=== PATIENT | male | born 2000 | race African-American/Black ===

== ENCOUNTER 2021-03-09 09:08 | Emergency (ER) | payer OTHER ==
[~2021-03-09] VITALS: Ht 182.9 cm; Wt 88.5 kg
--- OUTSIDE RECORDS SUMMARY | 2021-03-09 12:01 | CCD ---
Author Author [facility] Organization [facility] Address Unknown Phone Unavailable Support Name Relationship Address Phone [facility] Next Of Kin [address] [place] [address] Unavailable [employer] [place] [id number] [place] [address] Re-disclosure Warning The records that you are about to access may contain information from federally-assisted alcohol or drug abuse programs. If such information is present, then the following federally mandated warning applies: This information has been disclosed to you from records protected by federal confidentiality rules (42 CFR part 2). The federal rules prohibit you from making any further disclosure of this information unless further disclosure is expressly permitted by the written consent of the person to whom it pertains or as otherwise permitted by 42 CFR part 2. A general authorization for the release of medical or other information is NOT sufficient for this purpose. The Federal rules restrict any use of the information to criminally investigate or prosecute any alcohol or drug abuse patient.The records that you are about to access may contain highly sensitive health information, the redisclosure of which is protected by Article 27-F of the [facility] Public Health law. If you continue you may have access to information: Regarding HIV / AIDS; Provided by facilities licensed or operated by the [facility] Office of Mental Health; or Provided by the [facility] Office for People With Developmental Disabilities. If such information is present, then the following [facility] mandated warning applies: This information has been disclosed to you from confidential records which are protected by state law. State law prohibits you from making any further disclosure of this information without the specific written consent of the person to whom it pertains, or as otherwise permitted by law. Any unauthorized further disclosure in violation of state law may result in a fine or retirement sentence or both. A general authorization for the release of medical or other information is NOT sufficient authorization for further disc losure. Immunizations Vaccine Date Status Description Data Source(s) COVID-19 VACCINE Pfizer 09/29/2020 12:00:00 AM EDT completed [facility] Vaccine Series Complete: NOThis Data was Submitted to [facility] [employer]. Medications No Information Insurance Providers Payer name Policy type / Coverage type Policy ID Covered republican ID Covered republican's relationship to hunter Policy Hunter Plan Information [facility] [id number] [facility] [id number] Problems, Conditions, and Diagnoses No Information Surgeries/Procedures No Information Results ID Date Data Source [id number] 07/11/2020 08:30:00 AM EST [facility] Name Value Range Interpretation Code Description Data Alejandra rce(s) Supporting Document(s) SARS coronavirus 2 RNA Not Detected [facility] [place] This lab was ordered by [facility] [employer] [facility] and reported by [facility]. ID Date Data Source [id number] 06/01/2020 12:13:00 PM EST [facility] Name Value Range Interpretation Code Description Data Alejandra rce(s) Supporting Document(s) SARS coronavirus 2 RNA Not Detected [facility] [place] This lab was ordered by [facility] and reported by [facility]. Procedure Social History No Information
--- NOTE | 2021-03-09 12:07 | REP ---
INDICATION: right inguinal pain/swelling. COMPARISON: None. TECHNIQUE: Real-time sonographic evaluation of bilateral inguinal regions performed at rest and with Valsalva maneuver. FINDINGS: There is mild bilateral inguinal adenopathy. On the right there are lymph nodes measuring 2.2 x 0.5 x 1.1 cm, 1.7 x 0.6 x 1.1 cm and 1.4 x 1.0 x 1.3 cm. On the left there are lymph nodes measuring 1.3 x 0.8 x 1.1 cm and 1.3 x 0.6 x 1.4 cm. There is no evidence of inguinal hernia bilaterally. IMPRESSION: Mild bilateral inguinal adenopathy. <Electronically signed by Jyadon Luque > 03/09/21 [id number]
--- NOTE | 2021-03-09 12:12 | REP ---
INDICATION: right inguinal pain/swelling. COMPARISON: None. TECHNIQUE: Real-time sonographic evaluation of scrotum and contents performed. FINDINGS: The testicles are normal in size and echotexture, right testicle measuring 4.7 x 2.1 x 2.9 cm and left testicle 4.2 x 2.0 x 3.0 cm. There is no testicular mass or torsion, blood flow is seen in each testicle with duplex Doppler evaluation. 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 The epididymis is unremarkable bilaterally. There is a small right hydrocele. IMPRESSION: No testicular mass or torsion. Small right hydrocele. There is scattered punctate calcifications throughout both testicles. <Electronically signed by Jaydon Luque > 03/09/21 [id number]
[2021-03-09] MEDS ORDERED: NAPR-837 PO (12:23)
[2021-03-09 12:30] VITALS: BP 143/63
[2021-03-09 15:01] LABS: GC DNA AMPLIFICATION NEGATIVE (NEGATIVE)
--- NOTE | 2021-03-10 06:47 | ED PDOC ---
Post-Departure Follow-Up scrotal us and pelvic us faxed to [facility] for fu Tyrell Christopher MD Mar 10, 2021 06:47
== END 2021-03-09 12:33 | disposition home or self-care (01) ==
LOC: M ED 09:08
DX: R59.9 Enlarged lymph nodes, unspecified (principal)